=== PATIENT | female | born 1935 | race Caucasian/White ===

== ENCOUNTER → 2017-05-19 11:32 | Day surgery (SDC) | payer MEDICARE ==
[~2017-05-19] VITALS: Ht 157.5 cm; Wt 70.5 kg
--- NOTE | ~2017-05-19 | OP ---
PATIENT NAME: MAREK BURKETT MEDICAL RECORD: [id number] :37 LOCATION:D.OPS ADMISSION DATE: SURGEON: LEXY FRAGA DO OPERATION DATE: 05/19/17 PROCEDURE: Colonoscopy with polypectomy. INDICATIONS FOR PROCEDURE: History of colon polyps, change in bowel habits, constipation. SCOPE: Olympus video pediatric colonoscope. MEDICATIONS: Propofol 500 milligrams IV per anesthesia. WITHDRAWAL TIME: 21 minutes. ESTIMATED BLOOD LOSS: Minimal. COMPLICATIONS: None. FINDINGS: Informed consent was given. The patient was made comfortable with the above medication. After reaching an adequate level of sedation by slow IV push, the patient was placed on her left side. A digital rectal examination was performed and was normal. The endoscope was then advanced under direct visualization through the rectum to the cecum with visualization of the appendiceal orifice and ileocecal valve. The scope was slowly withdrawn, and the mucosa was carefully examined. There were five separate polyps which were benign appearing and sessile. Four were located in the transverse colon and one was located in the descending colon. All polyps measured in range from 3-5 millimeters in size. They were all removed with hot forceps completely. There was evidence of mild diverticulosis involving the descending and sigmoid colon. Retroflexion was performed in the rectum with small nonbleeding internal hemorrhoids visualized. The scope was then slowly withdrawn from the patient. The patient tolerated the procedure well, and there were no complications. IMPRESSIONS: 1. Five polyps as described above, removed with hot forceps. 2. Small nonbleeding internal hemorrhoids. 3. Mild diverticulosis of the left side of the colon. PLAN/RECOMMENDATIONS: 1. Discharge home when recovery parameters are met. 2. High fiber diet. 3. Continue current medications. 4. Continue MiraLax one cap daily as needed for constipation. 5. Recommend supplementing diet with one to two tablespoons of fiber daily. 6. Recall colonoscopy will be dependent on pathology results of polyps removed, but I anticipate this being 3-5 years. 7. Follow up in gastroenterology clinic as needed. OPERATIVE REPORT [id number] MAREK BURKETTLXEY WYATT DO CC: [id number] DICTATION DATE: 05/19/17 1500 [employer] WIRE MACHINE OPERATOR: DM 05/20/17 [id number] [facility] 05/19/17 [facility] [address] [place] [address]
[~2017-05-19 11:32] MED LIST: AMOXICILLIN500 M1 PO; BAYER CHEWABLE81 MG PO; COREG6.25 MG; LIPITOR20 MG PO; OMEPRAZOLE20 M1 PO; PRED FORTE5 ML; TIMOPTIC 0.5 % O5 ML; TIMOPTIC 0.5 % O5 ML RIGHT EYE; ZOLOFT100 MG PO
[2017-05-19 13:32] VITALS: BP 143/67; Ht 157.5 cm; Wt 70.5 kg
[2017-05-19 13:51] LABS: BASOPHILS 0.7 % (0-2); EOSINOPHILS 1.2 % (0-7); HEMATOCRIT 41.4 % (36.0-48.0); IMMATURE GRANULOCYTES 0.3 % (0-5); LYMPHOCYTES 30.7 % (15-50); MCH 30.2 pg (26.0-34.0); MCHC 33.8 g/dL (31.0-37.0); MCV 89.2 fL (80.0-100.0); MEAN PLATELET VOLUME 9.9 fL (7.4-10.4); MONOCYTES 12.3 % (2-11); NEUTROPHILS 54.8 % (40-80); PLATELET COUNT 191 10x3/uL (130-400); RBC 4.64 10x6/uL (4.00-5.40); RDW 13.2 % (11.5-14.5); WBC 5.8 10x3/uL (4.8-10.8)
[2017-05-19 14:01] LABS: CALC OSMOLALITY 280 mosm/kg (275-300); CALCIUM 9.4 mg/dL (8.5-10.1); CARBON DIOXIDE 25.1 mmol/L (21.0-32.0); CHLORIDE - SERUM 105 mmol/L (98-107); CREATININE - SERUM 0.7 mg/dL (0.6-1.3); GLUCOSE 92 mg/dL (74-106); SODIUM 142 mmol/L (136-145); UREA NITROGEN 8 mg/dL (7-18); eGFR NON AFRICAN AMERICAN 85 mL/min (90-120)
--- NOTE | 2017-05-19 16:10 | NUR ---
1550 PT ESCORTED OUT BY VOLUNTEER AND ACCOMPANIED BY FRIENDS.
== END | disposition home or self-care (01) ==
LOC: D.OPS 11:32
PROVIDERS: Anesthesiology
DX: D12.3 Benign neoplasm of transverse colon (principal); D12.4 Benign neoplasm of descending colon; K57.30 Diverticulosis of large intestine without perforation or abscess without bleeding; Z01.812 Encounter for preprocedural laboratory examination; I10 Essential (primary) hypertension; R19.4 Change in bowel habit